=== PATIENT | male | born 1975 | race Caucasian/White ===

== ENCOUNTER 2022-11-20 09:25 | Inpatient (IN) | payer BC ==
[~2022-11-20] VITALS: Ht 175.2 cm; Wt 111.1 kg
[2022-11-20] MEDS ORDERED: LIDOCAINE 1% INJ 20 ML VIAL ONE (09:44)
[2022-11-20] MEDS ORDERED: NS IV 1000 ML 1,000 ML ONE (09:44)
[2022-11-20] MEDS ORDERED: HEParin (CATH LAB) 2,000 ML IV ONE (09:44)
[2022-11-20] MEDS ORDERED: fentaNYL INJ 100 MCG/2 ML AMP ONE (09:44)
[2022-11-20] MEDS ORDERED: MIDAZOLAM 5 MG/5 ML (VERSED) VIAL ONE (09:44)
[2022-11-20] MEDS ORDERED: HEParin 1000 UNIT/ML (10ML VIAL) FOR BOLUS ONE (09:44)
[2022-11-20] MEDS ORDERED: ASPIRIN 81 MG CHEW (CHILDREN'S ASA) PO ONE (09:45)
[2022-11-20] MEDS ORDERED: HEParin 1000 UNIT/ML (10ML VIAL) FOR BOLUS IV ONE (09:45)
[2022-11-20] MEDS ORDERED: NITRO DRIP 25000 MCG/D5W 0 ML IV ONE (09:45)
[2022-11-20] MEDS ORDERED: CLOPIDOGREL 300 MG (PLAVIX) TABLET PO ONE ×2 (09:45→10:41)
[2022-11-20 09:54] LABS: BASOPHILS # (AUTO) 0.1 10^3/uL (0.0-0.1); BASOPHILS % (AUTO) 1 % (0-10); EOSINOPHILS # (AUTO) 0.3 10^3/uL (0.0-0.3); EOSINOPHILS % (AUTO) 3 % (0-10); HEMATOCRIT 45 % (40-54); HEMOGLOBIN 15.1 g/dL (13.3-17.7); LYMPHOCYTES # (AUTO) 4.2 10^3/uL (1.0-4.0); LYMPHOCYTES % (AUTO) 40 % (12-44); MEAN CORPUSCULAR HEMOGLOBIN 30 pg (25-34); MEAN CORPUSCULAR HGB CONC 34 g/dL (32-36); MEAN CORPUSCULAR VOLUME 87 fL (80-99); MEAN PLATELET VOLUME 11.3 fL (9.0-12.2); MONOCYTES # (AUTO) 0.9 10^3/uL (0.0-1.0); MONOCYTES % (AUTO) 8 % (0-12); NEUTROPHILS # (AUTO) 5.1 10^3/uL (1.8-7.8); NEUTROPHILS % (AUTO) 48 % (42-75); PLATELET COUNT 305 10^3/uL (130-400); WHITE BLOOD COUNT 10.6 10^3/uL (4.3-11.0)
[2022-11-20 09:57] LABS: ALBUMIN 4.2 GM/DL (3.2-4.5); POTASSIUM 3.9 MMOL/L (3.6-5.0)
[2022-11-20 09:58] LABS: CALCIUM 8.8 MG/DL (8.5-10.1)
[2022-11-20 09:59] LABS: PROTHROMBIN TIME PATIENT 13.5 SEC (12.2-14.7); TOTAL PROTEIN 6.7 GM/DL (6.4-8.2)
[2022-11-20 10:01] LABS: BILIRUBIN,TOTAL 0.4 MG/DL (0.1-1.0)
--- NOTE | 2022-11-20 10:02 | ED Chest Pain ---
General Chief Complaint: Chest Pain Stated Complaint: CHEST PAINS Nursing Triage Note: PATIENT ARRIVES TO ROOM 6 WITH C/O CHEST PAIN THAT STARTED THIS AM AROUND 0830. DESCRIBED MID STERNAL CHEST PAIN WITH NO RADIATION PAIN LEVEL AT A 3/10. MILD SOB VERBALIZED. A&OX3 Source: patient Exam Limitations: no limitations History of Present Illness Date Seen by Provider: November 20, 2022 Time Seen by Provider: 09:37 Initial Comments This 47-year-old gentleman presents to the emergency room with acute onset of chest pain this morning about 1 hour prior to arrival. He states his pain is fairly low at about 3/10. He has mild shortness of breath associated with it. He has no known cardiac history. He does have risk factors including smoking and family history. He is not in any distress at this time and vital signs are unremarkable. STEMI was noted on EKG and Dr. Castorena (drafting teacher) and boarding house manager were immediately notified. Weld Inspector was activated. Patient identifies his mother as his surrogate decision maker. Her name is Mara Polanco and she may be contacted at [phone]. Allergies and Home Medications Allergies Coded Allergies: Penicillins (Verified Allergy, Unknown, 11/20/22) amoxicillin (Verified Allergy, Unknown, 11/20/22) cephalexin (Verified Allergy, Unknown, 11/20/22) Patient Home Medication List Home Medication List Reviewed: Yes Review of Systems Review of Systems Constitutional: no symptoms reported EENTM: No Symptoms Reported Respiratory: See HPI Cardiovascular: See HPI Gastrointestinal: No Symptoms Reported Genitourinary: No Symptoms Reported Musculoskeletal: no symptoms reported Skin: no symptoms reported Psychiatric/Neurological: No Symptoms Reported Endocrine: No Symptoms Reported Hematologic/Lymphatic: No Symptoms Reported Past Bkgntid-Hwptmi-Bnpaxt Hx Patient Social History Tobacco Use?: Yes Tobacco type used: Cigarettes Smoking Status: Current Everyday Smoker Use of E-Cig and/or Vaping dev: No Substance use?: No Alcohol Use?: Yes Alcohol type: Beer Alcohol Frequency: Several times a month Pt feels they are or have been: No Immunizations Up To Date Influenza Vaccine Up-to-Date: Yes; Up-to-Date First/Initial COVID19 Vaccinat: "TOTAL OF 3 VACC" Past Medical History Surgery/Hospitalization HX: SEASONAL ALLERGIES TONSILS, NERVE IMPENGMENT ELBOW Surgeries: Yes Orthopedic (Nerve release at elbow), Tonsillectomy Respiratory: No Cardiac: No Neurological: No Genitourinary: No Gastrointestinal: No Musculoskeletal: No Endocrine: No HEENT: No Cancer: No Psychosocial: No Integumentary: No Physical Exam Vital Signs Vital Signs - First Documented 11/20/22 09:25 Temp 36.8 Pulse 71 Resp 18 B/P (MAP) 134/83 (100) Pulse Ox 96 O2 Delivery Room Air Capillary Refill : Less Than 3 Seconds Height, Weight, BMI Height: '" Weight: lbs. oz. kg; 33.00 BMI Method: General Appearance: No Apparent Distress, WD/WN, Other (Overweight) HEENT: PERRL/EOMI Neck: Normal Inspection; No JVD Respiratory: Lungs Clear, Normal Breath Sounds, No Accessory Muscle Use Cardiovascular: Regular Rate, Rhythm, No Edema, No Murmur Gastrointestinal: Non Tender, Soft Extremity: Normal Inspection, Non Tender, No Pedal Edema Neurologic/Psychiatric: Alert, Oriented x3, No Motor/Sensory Deficits, Normal Mood/Affect, instructor nurse II-XII Norm as Tested Skin: Normal Color, Warm/Dry Progress/Results/Core Measures Results/Orders Lab Results Laboratory Tests Test 11/20/22 09:30 Range/Units White Blood Count 10.6 4.3-11.0 10^3/uL Red Blood Count 5.12 4.30-5.52 10^6/uL Hemoglobin 15.1 13.3-17.7 g/dL Hematocrit 45 40-54 % Mean Corpuscular Volume 87 80-99 fL Mean Corpuscular Hemoglobin 30 25-34 pg Mean Corpuscular Hemoglobin Concent 34 32-36 g/dL Red Cell Distribution Width 13.2 10.0-14.5 % Platelet Count 305 130-400 10^3/uL Mean Platelet Volume 11.3 9.0-12.2 fL Immature Granulocyte % (Auto) 0 % Neutrophils (%) (Auto) 48 42-75 % Lymphocytes (%) (Auto) 40 12-44 % Monocytes (%) (Auto) 8 0-12 % Eosinophils (%) (Auto) 3 0-10 % Basophils (%) (Auto) 1 0-10 % Neutrophils # (Auto) 5.1 1.8-7.8 10^3/uL Lymphocytes # (Auto) 4.2 H 1.0-4.0 10^3/uL Monocytes # (Auto) 0.9 0.0-1.0 10^3/uL Eosinophils # (Auto) 0.3 0.0-0.3 10^3/uL Basophils # (Auto) 0.1 0.0-0.1 10^3/uL Immature Granulocyte # (Auto) 0.0 0.0-0.1 10^3/uL My Orders Orders - JAYCE WATERS MD Cbc With Automated Diff (11/20/22 09:45) Magnesium (11/20/22 09:45) Ekg Tracing (11/20/22:45) Comprehensive Metabolic Panel (11/20/22:45) Myoglobin Serum (11/20/22:45) Protime With Inr (11/20/22:45) Partial Thromboplastin Time (11/20/22:45) O2 (11/20/22 09:45) Monitor-Rhythm Ecg Trace Only (11/20/22:45) Lipid Panel (11/21/22 06:00) Ed Iv/Invasive Line Start (11/20/22 09:45) Troponin I Lucero (11/20/22 09:45) Clopidogrel Tablet (Plavix Tablet) (11/20/22 09:45) Aspirin Chewable Tablet (Baby Aspirin Ch (11/20/22:45) Heparin (Bolus Per Protocol) (Heparin (B (11/20/22 09:45) Medications Given in ED Current Medications Medications Dose Ordered Sig/Jakob Route Start Time Stop Time Status Last Admin Dose Admin Aspirin 324 mg ONCE ONCE PO 11/20/22 09:45 11/20/22 09:47 DC 11/20/22 09:49 324 MG Clopidogrel Bisulfate 300 mg ONCE ONCE PO 11/20/22 09:45 11/20/22 09:47 DC 11/20/22 09:49 300 MG Vital Signs/I&O 11/20/22 09:25 Temp 36.8 Pulse 71 Resp 18 B/P (MAP) 134/83 (100) Pulse Ox 96 O2 Delivery Room Air Blood Pressure Mean: 100 Progress Progress Note : Progress Note Dr. Hyman was immediately contacted after review of the EKG. office machine service supervisor was contacted and Weld Inspector activation was requested. Dr. Hyman presented to the emergency room a short time later to personally assess the patient and he was quickly taken to Weld Inspector. While in the ER he received aspirin 324 mg chewed and Plavix 300 mg orally. Heparin bolus and drip was ordered but could not be initiated before he was taken to Weld Inspector. Weld Inspector staff will initiate the heparin bolus and drip. Risks and benefits of cardiac angiography were reviewed with the patient and he verbally consented to the procedure. He remained stable during his time in the emergency room. Initial ECG Impression Date: November 20, 2022 Initial ECG Impression Time: 09:32 Initial ECG Rate: 65 Initial ECG Rhythm: Normal Sinus Comment Sinus rhythm with ST elevation in leads II, III, and aVF. ST depression noted in aVL and V2. No abnormal intervals or axis deviation. This EKG represents STEMI. Departure Communication (Admissions) Dr. Castorena Impression Primary Impression: STEMI (ST elevation myocardial infarction) Qualified Codes: I21.3 - ST elevation (STEMI) myocardial infarction of unspecified site Disposition: ADMITTED INPATIENT Condition: Critical Admissions Decision to Admit Reason: Admit from ER (General) Decision to Admit/Date: November 20, 2022 Time/Decision to Admit Time: 09:37 Departure-Patient Inst. Referrals: NO,LOCAL PHYSICIAN (PCP/Family) Primary Care Physician JAYCE WATERS MD November 20, 2022 10:02
[2022-11-20 10:03] LABS: CREATININE SERUM 0.95 MG/DL (0.60-1.30)
[2022-11-20] MEDS ORDERED: EPTIFIBATIDE BOLUS 20 ML IV ONE (10:07)
[2022-11-20] MEDS ORDERED: ATROPINE INJECTION 1 MG/10 ML SYR (ABBOTT) ONE (10:11)
[2022-11-20] MEDS ORDERED: TEMAZEPAM 7.5 MG CAP (RESTORIL) PO PRN (10:45)
[2022-11-20] MEDS ORDERED: ACETAMINOPHEN 325 MG TABLET PO PRN (10:45)
[2022-11-20] MEDS ORDERED: PATIENT MAY USE OWN MEDS, ALL PO SCH (10:45)
--- NOTE | 2022-11-20 10:51 | Cardiology History & Physical ---
HPI-Cardiology Cardiology H&P Date of Admission 11/20/22 Primary Care Physician Admitting Physician: Raffaele Attending Physician: Raffaele Attending Physician No,Local Physician Consulting Physician HPI CC: Chest pain HPI: 47 yo man with sudden onset of midsternal chest pain, mod to severe, associated with a feeling of shortness of breath, never experienced before, persistent for one hour prior to presentation, continuing in the ER, radiating to both shoulders. No palp or syncope or ankle swelling Review of Systems-Cardiology Review of Systems Constitutional: No malaise, No tiredness, No weight loss, No weight gain Eyes: No vision change Ears/Nose/Throat: No ear discharge, No nasal drainage, No recent hearing loss Respiratory: As described under HPI Gastrointestinal: No diarrhea; nausea Genitourinary: No dysuria, No urine frequency changes Musculoskeletal: No back pain, No joint pain Skin: No rash, No ulcerations Psychiatric/Neurological: No seizure, No focal weakness, No syncope Hematologic: No bleeding abnormalities FJC-Jckaez-Uhbyll Hx Patient Social History Smoking Status: Current Everyday Smoker Have you traveled recently?: No Alcohol Use?: Yes Pt feels they are or have been: No Tobacco type used: Cigarettes Past Medical History PMH As described under Assessment. Family Medical History Family Medical History: Reports fam h/o premature CAD Allergies and Home Medications Allergies Coded Allergies: Penicillins (Verified Allergy, Unknown, 11/20/22) amoxicillin (Verified Allergy, Unknown, 11/20/22) cephalexin (Verified Allergy, Unknown, 11/20/22) Patient Home Medication List Home Medication List Reviewed: Yes Physical Exam-Cardiology Physical Exam Vital Signs/I&O 11/20/22 11/20/22 09:25 09:50 Temp 36.8 36.8 Pulse 71 71 Resp 18 18 B/P (MAP) 134/83 (100) 134/83 Pulse Ox 96 96 O2 Delivery Room Air Room Air Capillary Refill : Less Than 3 Seconds Constitutional: AAO x 3, well-developed, well-nourished HEENT: EOMI, hearing is well preserved; No xanthelasmas are seen Neck: carotid pulses are 2 + bilaterally, with good upstrokes Respiratory: No accessory muscle use; chest expansion is symmetric, chest is bilaterally symmetric, lungs clear to auscultation, other (good, bilateral air entry) Cardiovascular: regular rate-rhythm, S1 and S2, systolic murmur (soft DESTIN at card vase) Gastrointestinal: No tender; soft; No guarding, No rebound; audible bowel sounds Extremities: No clubbing, No cyanosis, No significant edema Neurologic/Psychiatric: oriented x 3, other (moves all limbs equally) Skin: No rash on exposed areas, No ulcerations on exposed areas Data Review Labs Laboratory Tests 11/20/22 09:30: White Blood Count 10.6, Red Blood Count 5.12, Hemoglobin 15.1, Hematocrit 45, M savannah Corpuscular Volume 87, Mean Corpuscular Hemoglobin 30, Mean Corpuscular Hemoglobin Concent 34, Red Cell Distribution Width 13.2, Platelet Count 305, Mean Platelet Volume 11.3, Immature Granulocyte % (Auto) 0, Neutrophils (%) (Auto) 48, Lymphocytes (%) (Auto) 40, Monocytes (%) (Auto) 8, Eosinophils (%) (Auto) 3, Basophils (%) (Auto) 1, Neutrophils # (Auto) 5.1, Lymphocytes # (Auto) 4.2H, Monocytes # (Auto) 0.9, Eosinophils # (Auto) 0.3, Basophils # (Auto) 0.1, Immature Granulocyte # (Auto) 0.0, Prothrombin Time 13.5, INR Comment 1.0, Activated Partial Thromboplast Time 26, Sodium Level 138, Potassium Level 3.9, Chloride Level 106, Carbon Dioxide Level 18L, Anion Gap 14, Blood Urea Nitrogen 10, Creatinine 0.95, Estimat Glomerular Filtration Rate 99, BUN/Creatinine Ratio 11, Glucose Level 141H, Calcium Level 8.8, Corrected Calcium 8.6, Magnesium Level 2.0, Total Bilirubin 0.4, Aspartate Amino Transf (AST/SGOT) 18, Alanine Aminotransferase (ALT/SGPT) 36, Alkaline Phosphatase 66, Myoglobin 23.0, Troponin I < 0.028, Total Protein 6.7, Albumin 4.2 Laboratory Tests 11/20/22 09:30 A/P-Cardiology Assessment/Admission Diagnosis Ac inf wall STEMI Smoking Admission Status: Inpatient Order (span 2 midnights) Reason for Inpatient Admission: Ac STEMI Discussion and Recomendations * Emergency cath recommended. I discussed the rationale, procedure, risks, benefits, potential complications, and alternatives of card cath and possible ad hoc intervention with him. He understood and provided informed consent Clinical Quality Measures AMI/AHF: ASA po Prior to arrival: JESSI Leal MD FACP [facility] November 20, 2022 10:51
[2022-11-20] MEDS: NS IV 1000 ML 1,000 ML IV SCH ×2 (11:11→20:45)
--- NOTE | 2022-11-20 11:35 | Cardiac Cath Report ---
CARDIAC CATHETERIZATION DATE OF PROCEDURE: 11-20-22 INDICATION: Ac Inf wall STEMI HISTORY: The patient is a 47 year old male [ ] PROCEDURES PERFORMED: 1. LHC 2. Coronary angiography 3. PCI to RCA PROCEDURE DESCRIPTION: After informed consent and in the fasting state, left heart catheterization was performed through the R femoral artery utilizing a 6 Croatian system by percutaneous approach. 6 F JR4 guide for RCA cath and PCI (see below) 6 F JL 4 for L cor angio after completion of RCA PCI 6 F pigtail for LHC and LV angio Sheath sutured in place at the end of the procedure for removal on the floor PCI to RCA Guide: 6F JR4 Wire: Choice Floppy First balloon: 2.5 x 20 (Caxp-nf-nclekkg time 38 min) Stent: Xience 3.5 x 28 Second balloon: noncompliant 4.0 x 20 for dilatation of the prox 2/3rd of the stented segment Results: 100% prox RCA -> 0%; DORIS 0 -> DORIS 3 in RCA; RCA dominant CORONARY ANGIOGRAPHY: Left main coronary artery: Ok Left anterior descending coronary artery: Ok except 60-70 stenoses in prox and mid D2 (small caliber vessel) Left circumflex coronary artery: Ok Right coronary artery: Proximally occluded RCA, treated successfully with primary PCI (3.5x28 mm stent post dilated with 4.0 balloon) HEMODYNAMICS: LVEDP 8 mmHg; no pressure gradient on pull back across the aortic valve IMPRESSION: 1. Proximally occluded RCA, treated successfully with primary PCI (3.5x28 mm stent post dilated with 4.0 balloon) 2. LAD ok except moderately severe disease of a small caliber diag 3. LCx Ok 4. LVEDP 8 mmHg 5. LVEF 60% JESSI BAPTISTE MD FACP [facility] November 20, 2022 11:35
[2022-11-20] MEDS ORDERED: ATROPINE INJ 0.4 MG/ML SDV ONE (12:46)
[2022-11-20] MEDS: TICAGRELOR 90 MG TABLET (BRILINTA) PO SCH (20:42)
[2022-11-21 04:17] LABS: BASOPHILS # (AUTO) 0.1 10^3/uL (0.0-0.1); BASOPHILS % (AUTO) 1 % (0-10); EOSINOPHILS # (AUTO) 0.3 10^3/uL (0.0-0.3); EOSINOPHILS % (AUTO) 3 % (0-10); HEMATOCRIT 43 % (40-54); HEMOGLOBIN 14.4 g/dL (13.3-17.7); LYMPHOCYTES # (AUTO) 3.3 10^3/uL (1.0-4.0); LYMPHOCYTES % (AUTO) 34 % (12-44); MEAN CORPUSCULAR HEMOGLOBIN 29 pg (25-34); MEAN CORPUSCULAR HGB CONC 33 g/dL (32-36); MEAN CORPUSCULAR VOLUME 87 fL (80-99); MEAN PLATELET VOLUME 11.5 fL (9.0-12.2); MONOCYTES # (AUTO) 0.7 10^3/uL (0.0-1.0); MONOCYTES % (AUTO) 7 % (0-12); NEUTROPHILS # (AUTO) 5.3 10^3/uL (1.8-7.8); NEUTROPHILS % (AUTO) 55 % (42-75); PLATELET COUNT 251 10^3/uL (130-400); WHITE BLOOD COUNT 9.6 10^3/uL (4.3-11.0)
[2022-11-21 04:33] LABS: ALBUMIN 3.8 GM/DL (3.2-4.5); POTASSIUM 3.7 MMOL/L (3.6-5.0)
[2022-11-21 04:34] LABS: CALCIUM 9.1 MG/DL (8.5-10.1)
[2022-11-21 04:35] LABS: TOTAL PROTEIN 6.1 GM/DL (6.4-8.2)
[2022-11-21 04:37] LABS: BILIRUBIN,TOTAL 0.5 MG/DL (0.1-1.0)
[2022-11-21 04:39] LABS: CREATININE SERUM 0.95 MG/DL (0.60-1.30)
[2022-11-21 04:42] LABS: MAGNESIUM 1.9 MG/DL (1.6-2.4)
[2022-11-21] MEDS: NS IV 1000 ML 1,000 ML IV SCH (06:41)
[2022-11-21] MEDS: TICAGRELOR 90 MG TABLET (BRILINTA) PO SCH (08:02)
[2022-11-21] MEDS ORDERED: ASPIRIN 81 MG CHEW (CHILDREN'S ASA) PO SCH (09:00)
--- NOTE | 2022-11-21 10:42 | Progress Note - Cardiology ---
Cardiology SOAP Progress Note Subjective: No cp or palp or syncope No shortness of breath No n/v/d No weakness or focal weakness No groin pain or leg discomfort Wishes to go home. Refuses to stay in the hospital any longer Objective: I&O/Vital Signs 11/20/22 11/21/22 11/21/22 11/21/22 23:00 00:00 01:00 04:00 Temp 36.5 Pulse 74 74 70 73 Resp 24 24 21 B/P (MAP) 111/69 (83) 111/69 (83) 123/67 (85) Pulse Ox 95 95 94 O2 Delivery Room Air Room Air Room Air 11/21/22 11/21/22 11/21/22 11/21/22 04:00 07:00 07:56 08:00 Temp 36.8 36.3 Pulse 92 70 Resp 20 B/P (MAP) 136/84 (101) Pulse Ox 95 98 O2 Delivery Room Air Room Air 11/21/22 00:00 Intake Total 950 ml Output Total 2100 ml Balance -1150 ml Constitutional: AAO x 3, well-developed, well-nourished Respiratory: No accessory muscle use; chest expansion is symmetric, chest is bilaterally symmetric, lungs clear to auscultation, other (good, bilateral air entry) Cardiovascular: regular rate-rhythm, S1 and S2, systolic murmur (soft DESTIN at card vase) Gastrointestional: No tender; soft; No guarding, No rebound; audible bowel dorie nds Extremities: No clubbing, No cyanosis, No significant edema Neurologic/Psychiatric: oriented x 3, other (moves all limbs equally) Skin: No rash on exposed areas, No ulcerations on exposed areas Results/Procedures: Labs Laboratory Tests 11/21/22 03:47: White Blood Count 9.6, Red Blood Count 4.94, Hemoglobin 14.4, Hematocrit 43, Mean Corpuscular Volume 87, Mean Corpuscular Hemoglobin 29, Mean Corpuscular Hemoglobin Concent 33, Red Cell Distribution Width 13.3, Platelet Count 251, Mean Platelet Volume 11.5, Immature Granulocyte % (Auto) 0, Neutrophils (%) (Auto) 55, Lymphocytes (%) (Auto) 34, Monocytes (%) (Auto) 7, Eosinophils (%) (Auto) 3, Basophils (%) (Auto) 1, Neutrophils # (Auto) 5.3, Lymphocytes # (Auto) 3.3, Monocytes # (Auto) 0.7, Eosinophils # (Auto) 0.3, Basophils # (Auto) 0.1, I mmature Granulocyte # (Auto) 0.0, Sodium Level 140, Potassium Level 3.7, Chloride Level 108H, Carbon Dioxide Level 20L, Anion Gap 12, Blood Urea Nitrogen 8, Creatinine 0.95, Estimat Glomerular Filtration Rate 99, BUN/Creatinine Ratio 8, Glucose Level 108H, Calcium Level 9.1, Corrected Calcium 9.3, Magnesium Level 1.9, Total Bilirubin 0.5, Aspartate Amino Transf (AST/SGOT) 20, Alanine Aminotransferase (ALT/SGPT) 28, Alkaline Phosphatase 59, Total Protein 6.1L, Albumin 3.8, Triglycerides Level 383H, Cholesterol Level 222H, LDL Cholesterol Direct 145H, VLDL Cholesterol 77H, HDL Cholesterol 29L, Thyroid Stimulating Hormone (TSH) 1.30 Laboratory Tests 11/20/22 09:30 11/21/22 03:47 A/P: Assessment: Ac inf wall STEMI treated with primary PCI on 11-20-22 - Card cath on 11-20-22: Proximally occluded RCA, treated successfully with primary PCI (3.5x28 mm stent post dilated with 4.0 balloon); LAD ok except moderately severe disease of a small caliber diag; LCx Ok; LVEDP 8 mmHg; LVEF 60% Smoking - advised to quit immediately and completely Hyperlipidemia - on 11-21-22: TC 222, LDL-C 145, HDL-C 29, Trig 383 Plan: * I reviewed and discussed in detail with him his cath findings and interventions undertaken * We had advised another day of observation but he absolutely refuses and insists on going home. He has not has any arrhythmia and is asymptomatic * We discussed his medical regimen with him and discussed the importance of compliance, in particular his aspirin and Brilinta. He understands * Advised to quit smoking immediately and completely * Advised outpt f/u * Advised repeat hepatic and lipid profiles in a month after initiation of statin therapy * He understands all of the above and states he will comply with medication, lab work, smoking cessation, and f/u instructions Clinical Quality Measures AMI/AHF: ASA po Prior to arrival: JESSI Leal MD FACP [facility] November 21, 2022 10:42
--- NOTE | 2022-11-21 10:44 | Cardiology Discharge Summary ---
Diagnosis/Chief Complaint Date of Admission November 20, 2022 at 10:37 Date of Discharge 11-21-22 Final/Discharge Diagnosis Ac inf wall STEMI treated with primary PCI on 11-20-22 - Card cath on 11-20-22: Proximally occluded RCA, treated successfully with primary PCI (3.5x28 mm stent post dilated with 4.0 balloon); LAD ok except moderately severe disease of a small caliber diag; LCx Ok; LVEDP 8 mmHg; LVEF 60% Smoking - advised to quit immediately and completely Hyperlipidemia - on 11-21-22: TC 222, LDL-C 145, HDL-C 29, Trig 383 Chief Complaint/HPI Chief Complaint/HPI CC: Chest pain HPI: 47 yo man with sudden onset of midsternal chest pain, mod to severe, associated with a feeling of shortness of breath, never experienced before, persistent for one hour prior to presentation, continuing in the ER, radiating to both shoulders. No palp or syncope or ankle swelling. For hospital course and condition at discharge, please see our progress note of today's date (11-21-22). Discharge Summary Procedures None. Hospital Course Pending Labs Laboratory Tests 11/21/22 03:47: White Blood Count 9.6, Red Blood Count 4.94, Hemoglobin 14.4, Hematocrit 43, Mean Corpuscular Volume 87, Mean Corpuscular Hemoglobin 29, Mean Corpuscular Hemoglobin Concent 33, Red Cell Distribution Width 13.3, Platelet Count 251, Mean Platelet Volume 11.5, Immature Granulocyte % (Auto) 0, Neutrophils (%) (Auto) 55, Lymphocytes (%) (Auto) 34, Monocytes (%) (Auto) 7, Eosinophils (%) (Auto) 3, Basophils (%) (Auto) 1, Neutrophils # (Auto) 5.3, Lymphocytes # (Auto) 3.3, Monocytes # (Auto) 0.7, Eosinophils # (Auto) 0.3, Basophils # (Auto) 0.1, Immature Granulocyte # (Auto) 0.0, Sodium Level 140, Potassium Level 3.7, Chloride Level 108, Carbon Dioxide Level 20, Anion Gap 12, Blood Urea Nitrogen 8, Creatinine 0.95, Estimat Glomerular Filtration Rate 99, BUN/Creatinine Ratio 8, Glucose Level 108, Calcium Level 9.1, Corrected Calcium 9.3, Magnesium Level 1.9, Total Bilirubin 0.5, Aspartate Amino Transf (AST/SGOT) 20, Alanine Aminotransferase (ALT/SGPT) 28, Alkaline Phosphatase 59, Total Protein 6.1, Albumin 3.8, Triglycerides Level 383, Cholesterol Level 222, LDL Cholesterol Direct 145, VLDL Cholesterol 77, HDL Cholesterol 29, Thyroid Stimulating Hormone (TSH) 1.30 Discussion & Recommendations Home Medications Reviewed patient Home Medication Reconciliation performed by pharmacy medication reconciliations highway technician and/or nursing. Patients Allergies have been reviewed. Discharge Home Medications: Reviewed and agree with Discharge Medication list on patient's Discharge Instruction sheet Clinical Quality Measures AMI/AHF: ASA po Prior to arrival: JESSI Leal MD FACP [facility] November 21, 2022 10:44
[2022-11-21] MEDS ORDERED: TICA90TA PO (11:36)
[2022-11-21] MEDS ORDERED: ATOR40TA PO (11:36)
[2022-11-21] MEDS ORDERED: MTP25TSR PO (11:36)
[2022-11-21] MEDS ORDERED: ASPI81TA64 PO (11:36)
--- NOTE | 2022-11-21 11:36 | Discharge Inst-Cardiology ---
Discharge Inst-Cardiac Discharge Medications New Medications: Aspirin (Children's Aspirin) 81 Mg Tab.chew 81 MG PO DAILY, #30 TAB 11 Refills Atorvastatin Calcium (Lipitor) 40 Mg Tablet 40 MG PO HS, #30 TAB 11 Refills Metoprolol Succinate (Metoprolol Succinate) 25 Mg Tab.er.24h 25 MG PO DAILY for 30 Days, #30 TAB 11 Refills Ticagrelor (Brilinta) 90 Mg Tablet 90 MG PO BID, #60 TAB 11 Refills JESSI BAPTISTE MD [facility] November 21, 2022 11:36
--- NOTE | 2022-11-21 11:37 | Discharge Inst-Post CATH ---
Discharge Inst-CATH/EP Post Cardiac Cath/EP D/C Inst Follow Up/Plan F/u with Dr Castorena in 1-2 weeks NO SMOKING ACTIVITY * Go Home directly and rest. * Limit activity of the leg (or wrist if it was used) for 7 days including aerobics, swimming, jogging, bicycling, etc. * Restrict stair-climbing for 7 days if possible, if not, climb up with your non-cath leg, then bring together on the same step. * Avoid lifting, pushing, pulling or excessive movement of the affected extremity for 7 days. * Customary sexual activity may be resumed after 2 days-use caution not to use a position that strains or causes pain to the affected extremity. * No driving for 24 hours. * NO SMOKING. * Avoid straining for bowel movements for 7 days. * Gentle walking on level ground is allowed. * Returning to work will depend on the type of procedure and the results. Your doctor will discuss this with you. CALL YOUR DOCTOR FOR ANY OF THE FOLLOWING: *If bleeding from the puncture site occurs- Apply gentle pressure to site with clean cloth and call your doctor or EMS. * If a knot or lump forms under the skin, increases in size, or causes pain. * If bruising appears to be worsening or moving further down your leg instead of disappearing. * Temperature above 101 F. CARE OF YOUR GROIN INCISION; * Bruising or purple discoloration of the skin near the puncture site is common. * You may shower only, no bathtub bathing for 5 days. Be careful to avoid slipping as your leg may feel stiff. * If a closure device was used on your femoral artery, please see the attached guide regarding care of the device and your leg. * Leave dressing on FOR 24 hours. CARE OF YOUR WRIST INCISION; * Bruising or purple discoloration of the skin near the puncture site is common. * You may shower. * DO NOT submerge wrist. * Leave dressing on FOR 24 hours. JESSI CASTORENA MD FACP [facility] November 21, 2022 11:37
[2022-11-21 11:50] VITALS: BP 136/84
== END 2022-11-21 11:50 | disposition home or self-care (01) | DRG 247 ==
LOC: EDUNIT# 09:25 → ER 09:27 → ICU 10:37
PROVIDERS: ADMIT Internal Medicine Cardiovascular Disease; ATTEND Internal Medicine Cardiovascular Disease
PROC: 027034Z Dilation of Coronary Artery, One Artery with Drug-eluting Intraluminal Device, Percutaneous Approach (ICD-10-PCS; principal; 2022-11-20)
PROC: 4A023N7 Measurement of Cardiac Sampling and Pressure, Left Heart, Percutaneous Approach (ICD-10-PCS; 2022-11-20)
PROC: B2111ZZ Fluoroscopy of Multiple Coronary Arteries using Low Osmolar Contrast (ICD-10-PCS; 2022-11-20)
DX: I21.19 ST elevation (STEMI) myocardial infarction involving other coronary artery of inferior wall (principal); F17.210 Nicotine dependence, cigarettes, uncomplicated; E78.5 Hyperlipidemia, unspecified
CPT/HCPCS: 36415; 80053; 80061; 83735; 83874; 84443; 84484; 85025; 85610; 85730; 87081; 93005; 93041; 93458